=== PATIENT | male | born 1950 | race Caucasian/White ===

== ENCOUNTER 2016-11-26 05:44 | Inpatient (IN) | payer MEDICARE ==
--- NOTE | 2016-11-25 14:51 | HP ---
DATE OF CLINIC: 11/21/2016 RENALDO SOTO : 1950 PLANNED PROCEDURE: Left Total Hip Arthroplasty DATE OF SURGERY: November 26, 2016 SURGEON: Sunil Montanez M.D. HISTORY OF PRESENT ILLNESS Renaldo Soto is a 66 year old male. * Medication list reviewed with patient allergy list reviewed with patient. * Has not tried NSAIDS * Has not tried Physical Therapy * Has not tried Injections This is a 66-year-old gentleman referred over from Adilson Dale M.D., for complaints of left hip pain. He has had about a two year history of increasing left hip and leg pain initially chased it as some lumbar pathology which he also had. He has undergone what sounds like a lumbar decompression or at least discectomy without complete relief of symptoms. He continued to have pain in his hip and was seen by pain primary care provider and eventually they sent him for an MRI of his pelvis which demonstrated significant degenerative changes in his left hip. He is here today for consultation regarding this. He complains of pain both in the groin crease as well as radiating down the left leg. It is worse with weight bearing. It does wake him up some at night. It has not significantly improved with [id number]-[id number] anti-inflammatories or activity modification. He had an injection that it sounds like was maybe more trochanteric bursa injection that give him relief for a few days, but has had complete recurrence of his symptoms. He also notes a little bit of stiffness in his hip. He has been trying to do some work with a physical therapist and a chiropractor to improve his range of motion and he feels like he has not really has made a lot of progress there. He is interested in pursuing whatever we can to try and get this working a little bit better. It has significantly changed his lifestyle in terms of his level of allowable activity. After discussion and review of treatment options he has elected to proceed with surgery and presents today preoperatively. PAST MEDICAL AND SURGICAL HISTORY: His past medical surgical history are as documented. CURRENT MEDICATION * AmLODIPine Besylate 5 MG Tablet 1 once a day 90 days, 0 refills * Losartan Potassium-HCTZ 50-12.5 MG Tablet 1 once a day 90 days, 0 refills PAST MEDICAL/SURGICAL HISTORY Reported: Medical: A history of cancer Basal Cell, history of Arthritis, and Hypertension. Surgical / Procedural: Back Surgery L3-L4 2003 L5-S1 12/15/15. SOCIAL HISTORY Behavioral: Quit smoking Quit in 1970, previously smoked 0.5 pack a day for 4 years. Smoking status: Former smoker. Alcohol: Alcohol 3 a day. 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 ALLERGIES * Codeine Derivatives * Penicillins FAMILY HISTORY 0.3 children living Family medical history Mother: Heart Disease, Father: Cancer REVIEW OF SYSTEMS No recent constitutional symptoms to include fevers and chills. No recent cardiovascular symptoms to include chest pain or palpitations. No recent respiratory symptoms to include shortness of breath or recent infections. PHYSICAL FINDINGS * Vitals taken 11/21/2016 09:56 am BP-Sitting R 141/87 mmHg Pulse Rate-Sitting 71 bpm Temp-Oral 98.1 F Height 70.5 in Weight 201 lbs 12.8 oz Body Mass Index 28.5 kg/m2 Body Surface Area 2.11 m2 Pain Level 4 Pain Level Note 4-5/10 Ears, Nose, Throat: * ENT: normal. Lungs: * Clear to auscultation. Cardiovascular: Heart Rate And Rhythm: * Normal. Abdomen: * Normal. Neurological: Motor: * Dominant Hand = Left Hand. Patient is a well-developed, well-nourished male in no acute distress. They are awake, alert and conversant throughout the encounter. He appears his stated age. CARDIOVASCULAR: Intact peripheral pulses on bilateral lower extremities. No significant edema on inspection of bilateral lower extremities. NEUROLOGIC: Patient had intact coordinated composite motion of the bilateral lower extremities and sensation intact to light touch in all distributions of bilateral lower extremities. PSYCHIATRIC: Patient was oriented to person, place and time and displayed appropriate mood and affect during the encounter. SKIN: Exam of the skin on bilateral lower extremities showed no significant scars, lesions, rashes or masses. FOCUSED MUSCULOSKELETAL EXAM: The patient is ambulating without significant antalgia. He has got normal resting station of bilateral hips, knees and ankles. His left hip shows no erythema, ecchymosis or swelling. He has range of motion including flexion to about 110 degrees, he can only abduct about 20 degrees when his leg is in extension. He is not an obligate external rotator, but he only has about 5 degrees of internal rotation in the 90 degree flexed position and this does give him a significant pinching sensation. He can externally rotate about 20 degrees in this position. He can perform a straight leg raise. This is painful but constituting a positive Stincfield exam. He has minimal pain with a log roll. He has full motion and strength at the knee. He has a 5/5 strength in flexion, abduction, internal and external rotation at the hip. There is no evidence of any instability and he has a warm and well perfused leg distally with intact sensation and a normal resting tone. IMAGING X-rays from today show a severe left hip osteoarthritis with complete obliteration of the superior joint space, marginal osteophytes, subchondral cysts in both the head and the acetabulum including a large superior cyst. He also has an MRI of his pelvis which shows significant degenerative changes in the superior portion of the femoral head including subchondral cysts. The cyst in his acetabulum is a contained defect and appears to be about 2.5 x 2 cm in size. ASSESSMENT A 66-year-old male with left hip osteoarthritis notable for a large contained subchondral cyst superior to the acetabulum. PREVIOUS TESTS * Test: URINALYSIS Report Date: 11/19/2016 GLUCOSE NEGATIVE PH,URINE 6.0 SPEC. GRAVITY 1.020 KETONE NEGATIVE NITRITE NEGATIVE BLOOD NEGATIVE BILIRUBIN NEGATIVE APPEARANCE CLEAR PROTEIN NEGATIVE COLOR YELLOW LEUK ESTERASE NEGATIVE UROBILINOGEN NORMAL * Test: COMPREHENSIVE METABOLIC PANEL Report Date: 11/19/2016 ALT/SGPT 24 U/L ALBUMIN 3.8 g/dL ALB/GLOB RATIO 1.7 BUN 17 mg/dL BUN/CREAT RATIO 14 CALCIUM 9.1 mg/dL GLUCOSE 146 mg/dL High CREATININE 1.2 mg/dL SODIUM 137 meq/L POTASSIUM 4.3 meq/L CHLORIDE 103 meq/L CARBON DIOXIDE 29 meq/L ANION GAP 9 meq/L TOT PROTEIN 6.0 g/dL Low GLOBULIN 2.2 g/dL Low BILI,TOTAL 0.4 mg/dL AST/SGOT 14 U/L ALK PHOSPHATASE 63 U/L GFR 61 * Test: CBC NO DIFF Report Date: 11/19/2016 WBC 7.5 10*3/mL MCV 93.6 fL RBC 4.51 10*6/uL Low MCH 31.9 pg High MCHC 34.1 g/dL RDW 12.5 % PLATELET COUNT 207 10*3/mL HCT 42.2 % HGB 14.4 g/L * Test: PROTHROMBIN TIME Report Date: 11/19/2016 PROTIME 10.7 s INR 1.02 * Test: PARTIAL THROMBOPLASTIN TIME Report Date: 11/19/2016 APTT 23.4 s Low * Test: MRSA SCREEN Report Date: 11/20/2016 MRSA SCREEN NEGATIVE * Test: MSSA SCREEN Report Date: 11/20/2016 MSSA SCREEN NEGATIVE FOR STAPHYLOCOCCUS AUREUS THERAPY * Patient fall risk screen negative. * Patient eligible for fall risk assessment. * Patient received fall risk assessment. COUNSELING/EDUCATION * Education and counseling Post-Op Rx handout given PLAN * Unilateral primary osteoarthritis, left hip Physical Therapy: PT Benjamín Goodwin [phone] Instructions: Post-op Rehab Left KEKE SX: 11/26/16- Needs PT to start week of 12/01/16 PTNW Christa Arceo if possible OxyCONTIN 10 MG T12A, Take 1 pill by mouth every 12 hours for baseline pain control, 30 days, 0 refills OxyCODONE HCl 5 MG TABS, Take 1-2 tablets by mouth every 4 hours as needed for severe breakthrough pain, 14 days, 0 refills TraMADol HCl 50 MG TABS, Take 1-2 tablets by mouth every 6 hours as needed for moderate breakthrough pain, 14 days, 0 refills * Total hip replacement -Left CARE TEAM Adilson Dale MD [facility] Mir Parada MD Pain Medicine SURGICAL CONSENT We have discussed surgical options including left KEKE and non-operative management. The patient was counseled in detail regarding the diagnosis, treatment options available, prognosis of each treatment option and the potential risks and complications. The risks of surgery include, but are not limited to, anesthetic , neurovascular complications, pulmonary embolism, deep vein thrombosis, wound dehiscence, failure of any or all of the discussed procedures, infection of the joint or surrounding soft tissue, need for revision surgery, chronic pain, limitations in activities of daily living, inability to return to work, and loss of normal range of motion or functional use of the extremity. There is the possibility of failure over time that may require additional operative or non-operative treatment. The patient acknowledged that there are a number of perioperative risks not mentioned here and would still like to proceed. The patient is aware of and understands these risks, and wishes to proceed with the proposed surgical procedure and other procedures as indicated at the time of surgery. We will have the patient see their PCP for a preoperative medical risk assessment. The preoperative instructions were reviewed with the patient and all questions were answered. PB/sg
[~2016-11-26 05:44] MED LIST: CELECOXIB 200 MG CAPSULE PO ONE; CLINDAMYCIN 600 MG PREMIX 50 ML IV PRN; CLONIDINE HCL 0.1 MG/24 HR (7 DAY PATCH) TD SCH; FAMOTIDINE 20 MG TABLET PO ONE; GABAPENTIN 600 MG TABLET PO ONE; IV START KIT ONE; LACTATED RINGERS 1,000 ML ONE; ONDANSETRON 4 MG/2ML 2 ML VIAL IV ONE; OXYCODONE HCL 10 MG TAB.SR PO ONE; TRAMADOL HCL 50 MG TABLET PO ONE
[2016-11-26] MEDS ORDERED: CLINDAMYCIN 600 MG PREMIX 50 ML IV ONE (06:17)
[2016-11-26] MEDS ORDERED: ONDANSETRON 4 MG/2ML 2 ML VIAL ONE ×2 (06:27→08:42)
[2016-11-26] MEDS ORDERED: PROPOFOL 60 ML IV ONE (06:27)
[2016-11-26] MEDS ORDERED: LIDOCAINE 2% (PRES FREE) 5 ML VIAL ONE ×2 (06:27→08:34)
[2016-11-26] MEDS ORDERED: FENTANYL 100 MCG/2 ML VIAL ONE (06:28)
[2016-11-26] MEDS ORDERED: MIDAZOLAM HCL 1 MG/ML 2ML VIAL ONE ×2 (06:28→06:53)
[2016-11-26] MEDS ORDERED: SPINAL PROCEDURAL TRAY 1 EACH ONE (06:48)
[2016-11-26] MEDS ORDERED: BUPIVACAINE 0.25% (MDV) 24 ML, MORPHINE SULFATE 8 MG, EPINEPHRINE 0.3 MG in SODIUM CHLO... IF PRN (07:10)
[2016-11-26] MEDS ORDERED: BUPIVACAINE 0.25% (MDV) 20 ML in SODIUM CHLORIDE 0.9% FLUSH 20 ML IF PRN (07:10)
[2016-11-26] MEDS ORDERED: TRANEXAMIC ACID 1,000 MG in SODIUM CHLORIDE 0.9% 100 ML IV PRN (07:10)
[2016-11-26] MEDS ORDERED: POLYMYXIN B SULFATE 500,000 UNITS, BACITRACIN 25,000 UNITS in SODIUM CHLORIDE 3 L IRRIG... IR PRN (07:10)
[2016-11-26] MEDS ORDERED: OXYCODONE HCL 10 MG TAB.SR PO ONE (08:41)
[2016-11-26] MEDS ORDERED: TRAMADOL HCL 50 MG TABLET ONE (08:41)
[2016-11-26] MEDS ORDERED: FAMOTIDINE 20 MG TABLET ONE (08:42)
[2016-11-26] MEDS ORDERED: CELECOXIB 200 MG CAPSULE ONE (08:42)
[2016-11-26] MEDS ORDERED: GABAPENTIN 600 MG TABLET ONE (08:42)
[2016-11-26] MEDS ORDERED: CLONIDINE HCL 0.1 MG/24 HR (7 DAY PATCH) TD ONE (08:42)
[2016-11-26] MEDS ORDERED: EPHEDRINE SULFATE UD SYR 25 MG 25 MG/5 ML SYRINGE IV ONE ×2 (08:56→09:51)
[2016-11-26] MEDS ORDERED: ONDANSETRON 4 MG/2ML 2 ML VIAL IV PRN ×2 (09:35→11:39)
[2016-11-26] MEDS ORDERED: ATROPINE SULFATE 0.4 MG/1 ML VIAL IV PRN (09:35)
[2016-11-26] MEDS ORDERED: MEPERIDINE 25 MG/ML SYRINGE IV PRN (09:35)
[2016-11-26] MEDS ORDERED: HYDROMORPHONE HCL 1 MG/ML SYRINGE IV PRN (09:35)
[2016-11-26] MEDS ORDERED: FENTANYL 100 MCG/2 ML VIAL IV PRN (09:35)
[2016-11-26] MEDS ORDERED: NALOXONE HCL 0.4 MG/ML VIAL IV PRN (09:35)
[2016-11-26] MEDS ORDERED: PROMETHAZINE HCL 25 MG/ML VIAL IM PRN (09:35)
[2016-11-26] MEDS ORDERED: LACTATED RINGERS 1,000 ML IV SCH (09:45)
[2016-11-26] MEDS ORDERED: PROPOFOL 20 ML IV ONE (10:08)
[2016-11-26] MEDS ORDERED: DEXAMETHASONE SOD PHOS 4 MG/1 ML VIAL ONE (10:31)
--- NOTE | 2016-11-26 11:26 | RAD ---
Exam: Single view pelvis COMPARISON: Left hip radiographs 10/23/2016 INDICATION: Status post left hip replacement. Findings: A single Compa view of the pelvis was obtained and demonstrates postsurgical changes of recent left hip arthroplasty. No pericomponent fracture is identified. Skin saran are present. IMPRESSION: Expected postoperative appearance following left hip arthroplasty.
[2016-11-26] MEDS ORDERED: HYDROXYZINE PAMOATE 25 MG CAPSULE PO PRN (11:39)
[2016-11-26] MEDS ORDERED: KETOROLAC TROMETHAMINE 30 MG/ML 1 ML VIAL IV PRN (11:39)
[2016-11-26] MEDS ORDERED: HYDROMORPHONE HCL 0.5 MG/0.5 ML SYRINGE IV PRN (11:39)
[2016-11-26] MEDS ORDERED: TRAZODONE HCL 50 MG TABLET PO PRN (11:39)
[2016-11-26] MEDS ORDERED: CALCIUM CARBONATE 500 MG TAB.CHEW PO PRN (11:39)
[2016-11-26 12:24] VITALS: BMI 27.7
[2016-11-26] MEDS ORDERED: PUMP TUBING ONE (12:42)
[2016-11-26] MEDS: D5 1/2NS with 20 mEq KCL 1,000 ML IV SCH ×2 (12:47→20:40)
[2016-11-26] MEDS: ACETAMINOPHEN 500 MG TABLET PO SCH ×4 (13:32→23:58)
[2016-11-26] MEDS: CEFAZOLIN SODIUM 1 GRAM PREMIX 1 G in Premix (D5W) 50 ml 1 EACH IV SCH ×2 (16:29→23:59)
[2016-11-26] MEDS: TRAMADOL HCL 50 MG TABLET PO PRN ×2 (16:53→23:58)
[2016-11-26] MEDS: OXYCODONE HCL 5 MG TABLET PO PRN (18:05)
[2016-11-26] MEDS: DOCUSATE SODIUM 100 MG CAPSULE PO SCH (21:15)
[2016-11-26] MEDS: ASCORBIC ACID 500 MG TABLET PO SCH (21:16)
[2016-11-26] MEDS: OXYCODONE HCL 10 MG TAB.SR PO SCH (21:16)
[2016-11-27] MEDS: OXYCODONE HCL 5 MG TABLET PO PRN ×4 (05:14→17:36)
[2016-11-27] MEDS: D5 1/2NS with 20 mEq KCL 1,000 ML IV SCH ×2 (05:21→11:10)
[2016-11-27] MEDS ORDERED: REMOVE PATCH 1 EACH UNIT TD SCH (05:30)
[2016-11-27] MEDS: ACETAMINOPHEN 500 MG TABLET PO SCH ×2 (05:41→13:39)
[2016-11-27 06:22] LABS: HEMATOCRIT 27.2 % (32.0-52.0); HEMOGLOBIN 9.1 gm/l (14.0-18.0); MEAN CELL VOLUME 96.1 fl (80.0-94.0); MEAN CORPUSCULAR HEMOGLOBIN 32.2 pg (27.0-31.0); MEAN CORPUSCULAR HGB CONC 33.5 g/dl (33.0-37.0); RED CELL DISTRIBUTION WIDTH 12.2 % (11.5-14.5)
[2016-11-27 07:22] LABS: CALCIUM 8.5 mg/dL (8.6-10.3)
--- NOTE | 2016-11-27 08:27 | PDOC43 ---
- Subjective Findings: POD1 after Left KEKE. Patient doing well, without new complaint. Subjective: Reports Flatus, Reports Pain Tolerable, Denies Chest Pain, Denies Shortness of Breath, Denies Nausea, Denies Vomiting - Objective Vital Signs Temperature 98.2 F 11/27/16 07:32 Pulse Rate 60 11/27/16 07:32 Respiratory Rate 17 11/27/16 07:43 Blood Pressure 91/51 11/27/16 07:34 O2 Saturation by Pulse Oximetry 100 11/27/16 07:32 Oxygen Delivery Method Room Air Oxygen Flow Rate 0 Laboratory 11/27/16 06:00 11/27/16 06:00 11/27/16 06:00 RBC 2.83 L MCV 96.1 H MCH 32.2 H Anion Gap 5 L Calcium 8.5 L Active Medication Orders Category Date Time Status Acetaminophen [Tylenol] Med 11/26/16 12:00 Active 1,000 mg PO Q6HR Amlodipine Besylate [Norvasc] Med 11/27/16 09:00 Active 5 mg PO DAILY Ascorbic Acid [Vitamin C] Med 11/26/16 21:00 Active 500 mg PO BID Aspirin (Enteric Coated) [Ecotrin] Med 11/27/16 09:00 Active 325 mg PO DAILY Bisacodyl [Dulcolax] Med 11/29/16 10:45 Active 10 mg MO DAILY PRN Calcium Carbonate [Tums] Med 11/26/16 11:39 Active 1,000 - 2,000 mg PO Q2H PRN D5 1/2NS with 20 mEq KCL [D51/2NS with 20 mEq KCL] 1, Med 11/26/16 11:39 Active 000 ml IV 125 mls/hr Docusate Sodium [Colace] Med 11/26/16 21:00 Active 100 mg PO BID Hydrochlorothiazide Med 11/27/16 09:00 Active 12.5 mg PO DAILY Hydromorphone HCl [Dilaudid] Med 11/26/16 11:39 Active 0.5 mg IV Q1H PRN Hydroxyzine Pamoate [Vistaril] Med 11/26/16 11:39 Active 25 - 50 mg PO Q4H PRN Ketorolac Tromethamine [Toradol] Med 11/26/16 11:39 Active 30 mg IV Q6H PRN Losartan Potassium [Cozaar] Med 11/27/16 09:00 Active 50 mg PO DAILY Magnesium Hydroxide [Milk of Magnesia] Med 11/27/16 10:45 Active 30 ml PO DAILY PRN Multivitamins [One-A-Day] Med 11/27/16 09:00 Active 1 tab PO DAILY Multivitamins [One-A-Day] Med 11/27/16 09:00 Active 1 tab PO DAILY Ondansetron 4 mg/2ml Vial [Zofran] Med 11/26/16 11:39 Active 4 - 6 mg IV Q6H PRN Oxycodone HCl [Roxicodone] Med 11/26/16 11:39 Active 5 - 10 mg PO Q4H PRN Oxycodone Sr [Oxycontin] Med 11/26/16 21:00 Active 10 mg PO Q12HR Remove Patch Med 11/27/16 10:45 Once 1 each TD X1 ONE Resveratrol [Resveratrol 100 mg capsule] Med 11/27/16 09:00 Hold 100 mg PO DAILY Sodium Chloride 0.9% Flush [Normal Saline 10ml Flush] Med 11/26/16 11:39 Active 10 - 50 ml IV PRN PRN Sodium Chloride 0.9% Flush [Normal Saline 10ml Flush] Med 11/26/16 17:00 Active 10 ml IV Q8HR Tramadol HCl [Ultram] Med 11/26/16 11:39 Active 50 mg PO Q6H PRN Trazodone HCl [Desyrel] Med 11/26/16 11:39 Active 25 mg PO BEDTIME PRN Vitamin D3 Med 11/27/16 09:00 Active 2,000 units PO DAILY Intake and Output 11/25/16 11/26/16 11/27/16 23:59 23:59 23:59 Intake Total 4084 2181 Output Total 1999 550 Balance 2084 1631 General: Afebrile Lungs: Normal Air Movement Skin: Normal Color, Warm, Dry - Left Lower Extremity Incision: Dressing Clean/Dry/Intact, Well Approximated, Enrique Intact, No Dressing Saturated Motor: Extensor Hallucis Longus: 5/5, Tibialis Anterior: 5/5, Gastrocnemius: 5/5 , Peroneals: 5/5 Gross Sensation to Light Touch: Present: Deep Peroneal Nerve, Superficial Peroneal Nerve - Additional Comments 1. Physical Therapy: WBAT with [facility]. Work towards possible discharge this afternoon. 2. Pain Control: Multimodal pain control as needed. 3. DVT Prophylaxis: ASA 325mg daily, mobility. 4. Disposition: Possible discharge home today, this afternoon. 5. Medical Issues: No new medical problems.
[2016-11-27] MEDS ORDERED: AMLODIPINE BESYLATE 5 MG TABLET PO SCH (09:00)
[2016-11-27] MEDS ORDERED: HYDROCHLOROTHIAZIDE 12.5 MG CAP PO SCH (09:00)
[2016-11-27] MEDS ORDERED: LOSARTAN POTASSIUM 50 MG TABLET PO SCH (09:00)
[2016-11-27] MEDS ORDERED: ASPIRIN (ENTERIC COATED) 325 MG TABLET.EC PO SCH (09:00)
[2016-11-27] MEDS ORDERED: MULTIVITAMINS 1 TAB TABLET PO SCH ×2 (09:00)
[2016-11-27] MEDS ORDERED: RESVERATROL 100 MG PO SCH (09:00)
[2016-11-27] MEDS ORDERED: VITAMIN D3 1,000 UNITS CAP.LIQ PO SCH (09:00)
[2016-11-27] MEDS: ASCORBIC ACID 500 MG TABLET PO SCH (09:09)
[2016-11-27] MEDS: OXYCODONE HCL 10 MG TAB.SR PO SCH (09:09)
[2016-11-27] MEDS: DOCUSATE SODIUM 100 MG CAPSULE PO SCH (09:09)
[2016-11-27] MEDS ORDERED: MAGNESIUM HYDROXIDE 30 ML UDCUP PO PRN (10:45)
[2016-11-27] MEDS ORDERED: REMOVE PATCH 1 EACH UNIT TD ONE (10:45)
[2016-11-27 11:23] VITALS: BP 101/53
[2016-11-29] MEDS ORDERED: BISACODYL 10 MG SUP PR PRN (10:45)
--- NOTE | 2016-12-01 11:08 | OP ---
Renaldo HARMON : 1950 [id number] DATE OF SERVICE: November 26, 2016 PREOPERATIVE DIAGNOSIS: Left hip osteoarthritis. POSTOPERATIVE DIAGNOSIS: Left hip osteoarthritis. PROCEDURE PERFORMED: LEFT TOTAL HIP ARTHROPLASTY. SURGEON: Sunil Montanez M.D. INFORMATION TECHNOLOGY ANALYST: Alfonso Bird P.A.-C. ANESTHESIA: Dianne Kc C.R.N.A.; spinal plus sedation. SPECIMENS: No material was sent to the laboratory. ESTIMATED BLOOD LOSS: 450 mL. FLUIDS REPLACED: 2500 mL of crystalloid. URINE OUTPUT: 500 mL. TOURNIQUET: None. IMPLANTS: DePuy [place] cup size 62 mm, size 5 high offset TriLock stem, a 40 mm BioLox head +5 and a 40 mm liner for a 62 cup +4 neutral. DRAINS: None. INDICATIONS: Patient is a 66-year-old male with long-standing left hip osteoarthritis which has failed to respond to a course of nonoperative measures. Patient has exam and radiographic findings, which support this diagnosis. In order to restore patient's ability to participate in desired level of activities they were offered a total hip arthroplasty. The risks, benefits and alternatives of therapy were discussed with the patient at length and they elected to proceed with surgery. The patient underwent preoperative clearances. Informed consent was obtained and documented in the chart and the patient was placed on the schedule at the first available convenience. DESCRIPTION OF PROCEDURE: The patient was identified in the pre-operative holding area where they were marked with an indelible marker by the operating surgeon. Patient was taken to the operating room where they underwent a spinal anesthetic and then was positioned on the right side using a pegboard for intraoperative positioning. An axillary roll was placed and all bony prominences were padded. The patient was prepped and draped in the usual sterile fashion for surgery and received perioperative antibiotics and tranexamic acid. A final operative time out was performed and confirmed by all members of the operative team. A standard posterior approach to the hip was used with dissection carried down to the fascia overlying the greater trochanter. The fascia was divided and a Charnley retractor was placed. The trochanteric bursa was excised. The sciatic nerve was identified and protected throughout the procedure. The leg was taken into internal rotation and the piriformis tendon with elevated out of the piriformis fossa and tagged for later repair and then an L-shaped arthrotomy was made dividing the capsule as far anteriorly as we could get on the neck and then taking up a posterior flap that involved the posterior capsule and the remainder of the short external rotators. At this point the hip was dislocated posteriorly and the level of our neck cut was marked out with a neck cut to guide. A neck cut was made with an oscillating saw and the head was excised. The anterior capsule was excised using a Bovie as was the entirety of the labrum and anterior and posterior and inferior retractors were placed. We started reaming with a 56 mm reamer to get medial to the true floor of the acetabulum and then reamed up to a 61 mm which gave us a good circumferential bleeding bone and appropriate fit. At this point we encountered a subchondral cyst in the superior potion of the acetabulum with an opening approximately 1.5 cm across that was still of just soft tissue and fluid. We curetted out the soft tissue from within and then retrieved cancellous autograft from inside the femoral head using a small reamer. We packed this cancellous graft into the cyst and then reverse reamed with a 61 mm reamer in order to pack the graft in place. At this point we then washed any of the left over cancellous graft out of the acetabulum, trialed a size of 61 trial which was stable. This was exchanged for a 62 mm [place] cup with cluster holes. This was impacted in place and had excellent stability and position. Some overhanging bone in the anterior portion of the cup was excised using an osteotome and then a domed hole plug was placed and the neutral liner was impacted into the cup. At this point the anterior, posterior and inferior retractors were removed. The femoral neck elevator was placed and access to the proximal femur was obtained using a box osteotome and a canal finder. We broached up until we had good rotational and a longitudinal stability with a size 5 broach and then trialed off of that broach eventually settling on a standard offset with a 40 mm head at +5 neck length. This gave us excellent stability throughout. Anatomic range of motion did not show excessive tightness in extension, showed no tightness in the sciatic nerve and appropriately matched the opposite leg length. At this point all the trials were removed from the femur. The canal was copiously irrigated with a pulse lavage and the final stem was impacted into place. A 40 mm +5 BioLox head was then tapped on to the trunnion and the hip was reduced. Again, we were satisfied with our range of motion, leg length and stability. Three drill holes were made in the posterior, superior greater trochanter and the sutures that had been previously placed in the piriformis and the posterior capsule were used to repair these structures back to the femur. The hip was placed into a slightly abducted and externally rotated position. The Charnley retractors were removed. Everything was copiously irrigated with sterile saline and we closed the fascia with a running #0 Quill, the subcutaneous fat with a running #0 Vicryl, the subcutaneous tissues with interrupted sutures of #2-0 Vicryl and the skin with saran. A sterile dressing of Xeroform, fluffs, ABDs and Medipore tape was applied. The drapes were removed. The patient was repositioned supine, transferred to a stretcher and taken postoperatively to the post anesthesia care unit in stable condition. There were no observed intraoperative conditions during this procedure. Job [id number] Cc: [facility]
--- NOTE | 2016-12-18 16:46 | PCMBPN ---
Brief Post Op Note: Date of Procedure: 11/26/16 Start Time: 0900 Preoperative Diagnosis: 1. left hip osteoarthritis Postoperative Diagnosis: 1. Same Procedure: left total hip arthroplasty Surgeon: Sunil Montanez MD Assist: Ruben Bird PA-C Anesthesia: Jocy Ruiz Findings: as above; large cyst in superior acetabulum filled with autogenous cancellous graft from femoral head Condition: stable to PACU Complications: none IV Fluids: 2500 mLs of LR Urine Output: 500 mLs Estimated Blood Loss: 450 mLs Tourniquet Time: N/A Specimens: N/A Implants: DePuy [place] cup 62 mm; Trilock H.O. stem size 5; 40mm biolox head + 5; 62/40 liner +4 neutral Drains: N/A Sunil Montanez MD
--- NOTE | 2016-12-18 16:48 | PDOC5 ---
ADMIT DATE: 11/26/16 DISCHARGE DATE: 11/27/16 ADMISSION DIAGNOSES: left hip osteoarthritis PROCEDURES PERFORMED THIS HOSPITALIZATION: left total hip arthroplasty SURGEON:Sunil Montanez MD CONSULTATIONS: PT/OT/Care Mgmt BRIEF HISTORY:This is a 66 year old male patient with activity-limiting left hip osteoarthritis which has failed to respond adequately to a course of nonoperative measures. After a discussion of the risks, benefits, and alternatives of ongoing therapies, patient elected to proceed with left total hip arthroplasty. The patient underwent standard preoperative clearance and education, and presented to the hospital on the scheduled date for surgery. BRIEF HOSPITAL COURSE: Patient tolerated the procedure without complication and was admitted postoperatively for observation, pain control, and rehabilitation. Patient had an uncomplicated hospital course; see daily notes for details. On POD#1 patient met all criteria for discharge and was discharged home with family assistance. Follow-up appointments for outpatient Physical Therapy and Orthopedics were provided at the time of discharge. Patient restarted preoperative medications, and received prescriptions for postoperative pain medications, a stool softener, and DVT prophylaxis. Sunil Montanez MD - Discharge Plan Disposition: Home Additional Instructions: PROCEDURE: Left total hip arthroplasty (replacement) 1.) Dressings: may remove dressings on POD#4 and shower normally, let water run over incision and pat dry, but do not submerge or scrub incision. Cover with clean dressing and then change dressing every day until completely dry. 2.) Activity: may bear weight as tolerated with assistive device at all times. Outpatient PT as previously scheduled. Daily exercises as instructed by PT. Posterior hip precautions at all times as instructed. 3.) Medications: a.) Oxycontin: long-acting pain medication taken morning and evening for 10 days, no refills b.) Tramadol: as-needed pain medication for mild to moderate breakthrough pain (call for refills 3-4 days before running out) c.) Oxycodone: as-needed pain medication for severe breakthrough pain (call for refills 3-4 days before running out) d.) Aspirin 325 mg (over-the counter): one tab daily for 4 weeks for prevention of blood clots e.) Colace: stool softener to help prevent constipation, taken twice a day as long as you are on narcotics; if continued constipation, get Magnesium Citrate [id number] and use per instructions every 12 hours until you have a bowel movement. 4.) Followup: Dec 08 at 9:00 AM with my PA, Ruben Bird at the [facility]. Call [phone] to confirm your appointment. 5.) Questions: call my office ([phone]) with any questions or concerns. Go to ED or call 911 for any acute changes in health status or emergencies. Sunil Montanez MD Follow-Up: PT Christa Butts [Other] - 12/03/16 8:00 am Alfonso Bird PA [Physician Fire Control Assistant] - 12/08/16 9:00 am
== END 2016-11-27 17:37 | disposition home or self-care (01) | DRG 470 ==
LOC: OR 05:44 → MS 12:13
PROVIDERS: ADMIT Orthopaedic Surgery; ATTEND Orthopaedic Surgery
PROC: 0SRB04A Replacement of Left Hip Joint with Ceramic on Polyethylene Synthetic Substitute, Uncemented, Open Approach (ICD-10-PCS; principal; 2016-11-26)
DX: M16.12 Unilateral primary osteoarthritis, left hip (principal); I10 Essential (primary) hypertension; Z87.891 Personal history of nicotine dependence; Z88.0 Allergy status to penicillin; Z88.5 Allergy status to narcotic agent